=== PATIENT | female | born 1990 ===

== ENCOUNTER 2021-06-25 08:59 | Inpatient (IN) ==
[2021-06-25] MEDS ORDERED: NIFEdipine 10 MG CAPSULE PO ONE ×3 (09:59→23:06)
[2021-06-25 10:18] LABS: Basophils % 0.3 % (0.0-0.8); Eosinophils % 0.4 % (0.00-10.9); Hematocrit 39.7 VOL% (35.7-47.0); Hemoglobin 12.9 GM/DL (12.0-16.0); Immature Granulocytes % 0.8 %; Immature Granulocytes Absolute 0.09 #; Lymphocytes # 2.2 10*3/uL (1.4-4.0); Lymphocytes % 19.8 % (21.3-54.2); Mean Corpuscular HGB Conc 32.5 GM/DL (32-36); Mean Corpuscular Volume 81.5 FL (87-102); Mean Platelet Volume 8.9 FL (9.6-12.0); Monocytes % 7.1 % (1.7-12.7); Neutrophils % 71.6 % (38.7-73.9); Platelet Count 436 T/CUMM (130-400); Red Blood Count 4.87 MC/CUMM (3.8-5.5); Red Cell Distribution Width 14.3 % (9.3-17.3); White Blood Count 11.3 T/CUMM (4-12)
[2021-06-25 10:39] LABS: Alanine Aminotransferase 20 U/L (13-56); Albumin 2.3 G/DL (3.4-5.0); Alkaline Phosphatase 125 U/L (45-117); Aspartate Amino Transferase 12 U/L (0-37); Bilirubin,Direct < 0.100 MG/DL (0.0-0.20); Blood Urea Nitrogen 12 MG/DL (7-18); Calcium 8.4 MG/DL (8.5-10.1); Carbon Dioxide 28 MMOL/L (21-32); Estimated Glom Filtration Rate 103 ML/MIN; Glucose 81 MG/DL (74-106); Osmolality,Calculated 273.7 MOS/KG (273-304); Potassium 3.7 MMOL/L (3.5-5.1); Sodium 138 MMOL/L (136-145); Total Protein 6.6 G/DL (6.4-8.2); Uric Acid 6.2 MG/DL (2.6-6.0)
[2021-06-25 10:55] LABS: INR 0.9; PT Patient Result 10.1 SECS (10.5-12.0); Partial Thromboplastin Time 29.1 SECS (23.8-32.1)
[2021-06-25] MEDS ORDERED: MEPERIDINE 50 MG/1 ML VIAL IM ONE (16:24)
[2021-06-25] MEDS ORDERED: PROMETHAZINE 25 MG/1 ML VIAL IM ONE (16:24)
[2021-06-25] MEDS ORDERED: GLUCAGON 1 MG VIAL IM PRN (16:29)
[2021-06-25] MEDS ORDERED: DEXTROSE 10% 25 GM/250 ML BAG IV PRN (16:29)
[2021-06-25] MEDS: metFORMIN 500 MG TABLET PO SCH (18:19)
[2021-06-25] MEDS ORDERED: OXYTOCIN/LR 30 UNIT/1,000 ML BAG IV PRN (21:23)
[2021-06-26] MEDS: INSULIN REGULAR 100 UNIT/ML SUBCUT SCH ×3 (04:58→13:00)
[2021-06-26] MEDS ORDERED: OXYTOCIN 10 UNIT/ML VIAL IM PRN (05:00)
[2021-06-26] MEDS ORDERED: LACTATED RINGERS 1,000 ML IV SCH ×3 (06:00→10:00)
[2021-06-26] MEDS ORDERED: DEXTROSE 5% LACTATED RINGERS 1,000 ML IV SCH (06:31)
[2021-06-26] MEDS ORDERED: FAMOTIDINE 20 MG/2 ML VIAL IV ONE (07:00)
[2021-06-26] MEDS ORDERED: CITRIC ACID/SODIUM CITRATE 30 ML UDCUP PO ONE (07:00)
[2021-06-26] MEDS ORDERED: ceFAZolin 3,000 MG in SYRINGE 1 EACH IV ONE (07:00)
[2021-06-26] MEDS ORDERED: miSOPROStoL 200 MCG TABLET ONE (08:19)
[2021-06-26] MEDS ORDERED: OXYTOCIN/LR 20 UNIT/1,000 ML BAG IV ONE ×2 (08:20→09:58)
[2021-06-26] MEDS ORDERED: CARBOPROST TROMETHAMINE 250 MCG/ML AMP IM ONE (08:20)
[2021-06-26] MEDS ORDERED: PHENYLEPHRINE 1 MG/10 ML SYRINGE IV ONE (08:20)
[2021-06-26] MEDS ORDERED: TRANEXAMIC ACID 1,000 MG/10 ML VIAL ONE (08:20)
[2021-06-26] MEDS ORDERED: SODIUM CHLORIDE 0.9% 0 ML IV ONE (08:20)
[2021-06-26] MEDS ORDERED: BUPIVACAINE SPINAL 0.75% 2 ML AMP SPINAL ONE (08:20)
[2021-06-26] MEDS ORDERED: ONDANSETRON 4 MG/2 ML VIAL ONE (08:20)
[2021-06-26] MEDS ORDERED: KETOROLAC 30 MG/1 ML VIAL ONE (08:20)
[2021-06-26 09:35] LABS: Cord Arterial Blood HCO3 28.6 MMOL/L
[2021-06-26 09:37] LABS: Bacteria,Urine Occasional /HPF (Few); Mucus,Urine Occasional /LPF (Occasional); RBC,Urine 1 /HPF (0-4); Squamous Epithelial Cell,Urine Occasional /HPF (0-10)
[2021-06-26 09:38] LABS: Cord Venous Blood PO2 27.1 MMHG
[2021-06-26 09:39] LABS: Glucose,Urine (UA) Negative (Negative); Protein,Urine >=300 MG/DL; Urine Appearance Clear (Clear); Urine Color Yellow (Yellow); Urine Specific Gravity > 1.030 (1.001-1.035)
[2021-06-26 09:40] LABS: Bilirubin,Urine Small mg/dL (Negative); Blood, Urine Trace mg/dL (Negative); Ketones,Urine Negative (Negative); Nitrite,Urine Negative (Negative); Urine Urobilinogen 0.2 EU/DL (<2.0)
[2021-06-26] MEDS ORDERED: LACTATED RINGERS 1,000 ML IV ONE (09:47)
[2021-06-26] MEDS ORDERED: hydrOXYzine HCL 25 MG/1 ML VIAL IM PRN (09:56)
[2021-06-26] MEDS ORDERED: HYDROmorphone 2 MG/1 ML VIAL IV PRN (09:56)
[2021-06-26] MEDS ORDERED: ONDANSETRON 4 MG/2 ML VIAL IV PRN ×2 (09:56→09:58)
[2021-06-26] MEDS ORDERED: diphenhydrAMINE 50 MG/1 ML VIAL IV PRN (09:56)
[2021-06-26] MEDS ORDERED: ACETAMINOPHEN 325 MG TABLET PO PRN (09:58)
[2021-06-26] MEDS ORDERED: SIMETHICONE CHEW 80 MG TABLET PO PRN (09:58)
[2021-06-26] MEDS ORDERED: RHO(D) IMMUNE GLOBULIN 300 MCG SYRINGE IM ONE (09:58)
[2021-06-26] MEDS ORDERED: DEXTROSE 50% 25 GM/50 ML VIAL IV PRN (10:01)
[2021-06-26] MEDS: metFORMIN 500 MG TABLET PO SCH (10:55)
[2021-06-26] MEDS ORDERED: ACETAMINOPHEN 500 MG TABLET PO SCH (13:00)
[2021-06-26] MEDS: KETOROLAC 30 MG/1 ML VIAL IV SCH (15:30)
[2021-06-26] MEDS: ACETAMINOPHEN 500 MG TABLET PO SCH (15:31)
[2021-06-26] MEDS ORDERED: KETOROLAC 30 MG/1 ML VIAL IV SCH (16:00)
[2021-06-26 17:31] LABS: Basophils % 0.3 % (0.0-0.8); Eosinophils % 0.1 % (0.00-10.9); Hematocrit 27.2 VOL% (35.7-47.0); Hemoglobin 8.8 GM/DL (12.0-16.0); Immature Granulocytes % 0.7 %; Lymphocytes # 2.1 10*3/uL (1.4-4.0); Lymphocytes % 13.9 % (21.3-54.2); Mean Corpuscular HGB Conc 32.4 GM/DL (32-36); Mean Corpuscular Volume 81.7 FL (87-102); Mean Platelet Volume 9.2 FL (9.6-12.0); Monocytes % 6.3 % (1.7-12.7); Neutrophils % 78.7 % (38.7-73.9); Platelet Count 331 T/CUMM (130-400); Red Blood Count 3.33 MC/CUMM (3.8-5.5); Red Cell Distribution Width 14.3 % (9.3-17.3); White Blood Count 14.9 T/CUMM (4-12)
[2021-06-26] MEDS: DOCUSATE SODIUM 100 MG CAPSULE PO SCH (22:07)
[2021-06-27] MEDS: ACETAMINOPHEN 500 MG TABLET PO SCH (00:32)
[2021-06-27] MEDS: KETOROLAC 30 MG/1 ML VIAL IV SCH ×2 (02:08→03:14)
[2021-06-27 05:03] LABS: Basophils % 0.3 % (0.0-0.8); Eosinophils % 0.3 % (0.00-10.9); Hematocrit 21.8 VOL% (35.7-47.0); Immature Granulocytes % 0.8 %; Immature Granulocytes Absolute 0.07 #; Lymphocytes # 1.8 10*3/uL (1.4-4.0); Lymphocytes % 20.1 % (21.3-54.2); Mean Corpuscular HGB Conc 32.1 GM/DL (32-36); Mean Corpuscular Volume 82.3 FL (87-102); Mean Platelet Volume 9.5 FL (9.6-12.0); Monocytes % 6.6 % (1.7-12.7); Neutrophils % 71.9 % (38.7-73.9); Platelet Count 308 T/CUMM (130-400); Red Blood Count 2.65 MC/CUMM (3.8-5.5); Red Cell Distribution Width 14.4 % (9.3-17.3); White Blood Count 9.1 T/CUMM (4-12)
[2021-06-27] MEDS ORDERED: SODIUM CHLORIDE 0.9% 1,000 ML IV PRN (08:08)
[2021-06-27] MEDS: DOCUSATE SODIUM 100 MG CAPSULE PO SCH ×2 (10:57→20:34)
[2021-06-27] MEDS: MULTIVITAMIN (PRENATAL) TABLET PO SCH (10:57)
[2021-06-27] MEDS: METOCLOPRAMIDE 10 MG TABLET PO SCH ×2 (10:58→16:25)
[2021-06-27] MEDS ORDERED: NIFEdipine 10 MG CAPSULE PO ONE (13:18)
[2021-06-27] MEDS: IBUPROFEN 800 MG TABLET PO PRN (13:58)
[2021-06-27] MEDS: MAGNESIUM HYDROXIDE SUSP 30 ML UDCUP PO PRN (20:34)
[2021-06-28 01:06] LABS: Basophils % 0.2 % (0.0-0.8); Eosinophils # 0.1 10*3/uL (0.0-0.87); Eosinophils % 0.6 % (0.00-10.9); Hematocrit 26.3 VOL% (35.7-47.0); Hemoglobin 8.5 GM/DL (12.0-16.0); Immature Granulocytes % 1.5 %; Immature Granulocytes Absolute 0.19 #; Lymphocytes # 2.3 10*3/uL (1.4-4.0); Lymphocytes % 17.8 % (21.3-54.2); Mean Corpuscular HGB Conc 32.3 GM/DL (32-36); Mean Corpuscular Volume 82.4 FL (87-102); Monocytes % 8.1 % (1.7-12.7); NRBC # 0.02 10*3/uL; Neutrophils % 71.8 % (38.7-73.9); Platelet Count 339 T/CUMM (130-400); Red Blood Count 3.19 MC/CUMM (3.8-5.5); Red Cell Distribution Width 14.3 % (9.3-17.3)
[2021-06-28] MEDS: METOCLOPRAMIDE 10 MG TABLET PO SCH ×2 (03:25→09:31)
[2021-06-28] MEDS: IBUPROFEN 800 MG TABLET PO PRN (07:01)
[2021-06-28] MEDS ORDERED: FERROUS SULFATE 325 MG TABLET PO SCH (09:00)
[2021-06-28] MEDS: MAGNESIUM HYDROXIDE SUSP 30 ML UDCUP PO PRN (09:31)
[2021-06-28] MEDS: DOCUSATE SODIUM 100 MG CAPSULE PO SCH (09:31)
[2021-06-28] MEDS: MULTIVITAMIN (PRENATAL) TABLET PO SCH (09:31)
[2021-06-28 11:30] VITALS: BP 161/92
== END 2021-06-28 14:50 | disposition home or self-care (01) | DRG 540 ==
LOC: N.LDOUT 08:59 → N.LD 09:00 → N.OB 06-26 12:28
PROVIDERS: ADMIT Obstetrics & Gynecology; ATTEND Obstetrics & Gynecology
PROC: LDCSECT (ICD-10-PCS; 2021-06-26 08:00)